=== PATIENT | female | born 1985 | race African-American/Black ===

== ENCOUNTER 2018-07-28 01:08 | Emergency (ER) | payer MEDICAID ==
[~2018-07-28] VITALS: Ht 170.2 cm; Wt 97.5 kg
[2018-07-28 01:12] VITALS: BP 164/87
[2018-07-28] MEDS ORDERED: cefTRIAXone SOD 1,000 MG VL IM ONE (05:00)
[2018-07-28] MEDS ORDERED: methylPREDNISolone SOD SUCC 125 MG/2 ML VL IM ONE (05:00)
[2018-07-28] MEDS ORDERED: PHENAZOPYRIDINE HCL 100 MG TAB PO ONE (05:00)
[2018-07-28] MEDS ORDERED: HYDROcodone-ACET 5/325MG TAB PO ONE (06:00)
== END 2018-07-28 06:02 | disposition home or self-care (01) ==
LOC: EDBD 01:08 → ER 01:11
DX: S33.5XXA Sprain of ligaments of lumbar spine, initial encounter (principal); N39.0 Urinary tract infection, site not specified; X58.XXXA Exposure to other specified factors, initial encounter; Y93.89 Activity, other specified; Y99.8 Other external cause status; Y92.89 Other specified places as the place of occurrence of the external cause
CPT/HCPCS: 72100; 96372; 99283; J0696; J2930

== ENCOUNTER 2020-08-29 11:27 | Inpatient (IN) | payer MEDICAID ==
[~2020-08-29] VITALS: Ht 167.6 cm; Wt 98.4 kg
[2020-08-29] MEDS ORDERED: BUTORPHANOL TARTRATE 2 MG/1 ML VIAL IV PRN ×2 (12:15)
[2020-08-29] MEDS ORDERED: LIDOCAINE 2%HCL (LOCAL ANESTH.) INJ 20ML MDV IJ PRN (12:15)
[2020-08-29] MEDS ORDERED: WITCH HAZEL-GLYCERIN PAD TOP PRN (12:15)
[2020-08-29] MEDS ORDERED: DERMOPLAST 60ML BOTTLE TOP PRN (12:15)
[2020-08-29] MEDS ORDERED: PHISODERM TOP SOLN 240ML BTL TOP PRN (12:15)
[2020-08-29] MEDS ORDERED: PROMETHAZINE HCL 25 MG/ML 1ML IM PRN (12:15)
[2020-08-29] MEDS ORDERED: PENICILLIN G POT 5MIL/D5 50ML 50 ML IV ONE (12:15)
[2020-08-29] MEDS: LACTATED RINGER'S 1,000 ML IV SCH ×2 (12:46→16:32)
[2020-08-29 13:10] LABS: Urine Bacteria FEW /hpf (None Seen); Urine Blood Negative /uL (Negative); Urine Mucus FEW (None Seen); Urine Specific Gravity 1.023 (1.001-1.035); Urine WBC 2 /hpf (0 - 5)
[2020-08-29 13:18] LABS: Amphetamine Screen, Urine NEGATIVE (NEGATIVE); Barbiturate Scree,Urine NEGATIVE (NEGATIVE); Benzodiazephine Screen, Urine NEGATIVE (NEGATIVE); Cannabinoid Screen, Urine NEGATIVE (NEGATIVE); Cocaine Screen, Urine NEGATIVE (NEGATIVE); Opiate Scree,Urine NEGATIVE (NEGATIVE); Phencyclidine Screen, Urine NEGATIVE (NEGATIVE)
[2020-08-29] MEDS ORDERED: PREN-96 PO (13:28)
[2020-08-29] MEDS ORDERED: miSOPROStol 100 mcg TAB PR PRN (13:30)
[2020-08-29] MEDS ORDERED: CARBOPROST TROMETHAMINE 250 MCG/1ML VIAL IM PRN (13:30)
[2020-08-29] MEDS ORDERED: METHYLERGONOVINE MALEATE 0.2 MG/ML AMP IM PRN (13:30)
[2020-08-29] MEDS ORDERED: miSOPROStol 100 mcg TAB SL PRN (13:30)
[2020-08-29] MEDS ORDERED: LACT. RINGERS/OXYTOCIN 20UNITS 1,000 ML IV ONE ×2 (13:31→14:30)
[2020-08-29] MEDS ORDERED: TERBUTALINE SULFATE 1 MG/ML 1ML VIAL SC PRN ×2 (14:30→15:00)
[2020-08-29] MEDS ORDERED: LACT. RINGERS/OXYTOCIN 20UNITS 1,000 ML IV SCH (14:30)
[2020-08-29 15:01] LABS: Hematocrit 33.5 % (36.0-46.0); Hemoglobin 11.4 g/dL (12.2-16.2); Mean Corpuscular Hemoglobin 30.6 pg (28.0-32.0); Mean Corpuscular Volume 89.8 fL (80.0-100.0); Platelet Count (auto) 189 10^3/uL (140-450); Red Blood Cells 3.73 10^6/uL (4.0-5.20); Red Cell Distribution Width 14.8 % (11.8-14.3); White Blood Cell 13.5 10^3/uL (4.4-10.8)
[2020-08-29 15:11] LABS: Basophils % (manual) 0 (0.0-2.0); Blast Cells 0; Metamyelocytes % 0; Promyelocytes % 0; Reactive Lymphocytes 0
[2020-08-29 15:28] LABS: INR 0.96 (0.9-1.15); Partial Thromboplastin Time 27.6 sec (23.0-31.2)
[2020-08-29 15:34] LABS: Albumin 2.4 g/dL (3.4-5.0); Calcium 8.1 mg/dL (8.5-10.1); Potassium 3.4 mmol/L (3.5-5.1)
[2020-08-29 15:36] LABS: BUN/Creatinine Ratio 12.5
[2020-08-29 15:39] LABS: Bilirubin, Total 0.4 mg/dL (0.2-1.0); Total Protein 6.8 g/dL (6.4-8.2)
[2020-08-29 15:51] LABS: Band Neutrophils % (manual) 6; Eosinophils % (manual) 3 (0-7); Lymphocytes % (manual) 13 (10.0-50.0); Monocytes % (manual) 4 (0-12); Myelocytes % 1
[2020-08-29] MEDS ORDERED: PENICILLIN G POTASSIUM 2,500,000 UNITS in D5W 5% 50 ML IV SCH (16:15)
[2020-08-29] MEDS ORDERED: miSOPROStol 100 mcg TAB ONE (16:53)
[2020-08-29] MEDS ORDERED: METHYLERGONOVINE MALEATE 0.2 MG/ML AMP IM ONE (16:54)
--- NOTE | 2020-08-29 19:05 | NUR ---
Ambulation: Patient OOB with standby assistance by RN. Patient ambulated to bathroom with steady gait. Patient able to void without difficulty, 350 ml. [facility]icare teaching provided with returned demonstration by patient. PT changed in to own clothes. Patient ambulated to room 7A while pushing open crib with steady gait and no distress noted.
--- NOTE | 2020-08-29 19:30 | NUR ---
PT EDUCATED ON AMBULATION TO PREVENT DVT/EMBOLUS. PT VERBALIZED UNDERSTANDING. Addendum: 08/30/20 at 0235 by SHEMAR CARLISLE RN RN Amended: Links added.
--- NOTE | 2020-08-29 19:30 | NUR ---
EDUCATION: PT EDUCATED ON SELF FUNDAL MASSAGE, HEMORRHAGE DUE BEING A GRAND MULTIP, AND SIDS/SAFE SLEEPING. PT WAS ENCOURAGED TO LAY BABY TO SLEEP IN [place]. PT VERBALIZED UNDERSTANDING
[2020-08-29] MEDS: ACETAMINOPHEN 325 MG TAB PO PRN (19:41)
[2020-08-29 23:15] VITALS: BP 125/67
[2020-08-30] MEDS: ACETAMINOPHEN 325 MG TAB PO PRN ×4 (00:28→18:51)
[2020-08-30] MEDS: IBUPROFEN 600 MG TAB PO PRN ×2 (01:22→08:07)
[2020-08-30 03:24] VITALS: BP 124/69
[2020-08-30 07:15] VITALS: BP 106/55
[2020-08-30 11:30] VITALS: BP 109/60
--- NOTE | 2020-08-30 12:28 | NUR ---
environmental services manager paged to call [facility] for ordered social service agency director consult.
[2020-08-30 15:30] VITALS: BP 110/66
--- NOTE | 2020-08-30 17:00 | NUR ---
Adriana from social services analyst calls the unit; this RN transfers the call to the patient room.
--- NOTE | 2020-08-30 17:05 | NUR ---
Adriana speaks to this RN and states that she is clearing patient for discharge this evening and will be entering a note into the chart.
[2020-08-30 18:59] VITALS: BP 116/63
--- NOTE | 2020-08-30 19:09 | NUR ---
IV removal IV DC'd with clean technique, catheter fully intact. Pressure dressing applied to site. Patient tolerated well. NOTE:
--- NOTE | 2020-08-30 19:24 | NUR ---
Discharge: Discharge instructions given as ordered. Pt encouraged to follow up with [facility] as instructed. All questions and concerns addressed. Patient verbalized understanding. Medication reconciliation completed and copy given to patient. All required/requested vaccines given and copies of vaccinations given to patient. Patient encouraged to prepare to depart unit.
--- NOTE | 2020-08-30 21:25 | NUR ---
Discharge: Patient taken to vehicle via steady ambulation with all personal belongings, accompanied by staff and family member. No distress noted at time of departure, no adverse changes in status since initial assessment. Car seat verified by this RN.
[2020-08-30 21:28] VITALS: BP 130/75
--- NOTE | 2020-08-31 17:10 | NUR ---
1700 08/30/20 - Spoke with patient regarding history of positive THC during . Patient and infant both tested negative at delivery. Patient had had an uncomplicated vaginal delivery. Patient denies use of any drugs. Patient states her spouse will be transporting her home, she lives with spouse and 5 children Patient states she feels safe in home environment. Patient stated all needs are met for her and the baby. All utilities are functioning appropriately in home. Patient denies any concerns at this time. Addendum: 08/31/20 at 1732 by Adriana Stuart RN Patient cleared for discharge by .
[2020-09-01 07:06] LABS: RPR Non Reactive (Non Reactive)
== END 2020-08-30 21:25 | disposition home or self-care (01) | DRG 560 ==
LOC: INTOOBSV 11:27 → LDRP 11:27 → OBSVTOIN 11:27 → UNDOADMOB 11:27 → LDRP 13:19
PROVIDERS: ADMIT Obstetrics & Gynecology; ATTEND Obstetrics & Gynecology
PROC: 10E0XZZ Delivery of Products of Conception, External Approach (ICD-10-PCS; principal; 2020-08-29)
PROC: 0HQ9XZZ Repair Perineum Skin, External Approach (ICD-10-PCS; 2020-08-29)
PROC: 3E033VJ Introduction of Other Hormone into Peripheral Vein, Percutaneous Approach (ICD-10-PCS; 2020-08-29)
DX: O70.0 First degree perineal laceration during delivery (principal); Z20.828 Contact with and (suspected) exposure to other viral communicable diseases; Z37.0 Single live birth; Z90.49 Acquired absence of other specified parts of digestive tract; Z3A.40 40 weeks gestation of pregnancy
CPT/HCPCS: 36415; 59025; 59409; 76805; 80053; 80307; 81001; 81002; 84112; 85007; 85027; 85610; 85730; 86592; 86850; 86900; 86901; 87081; 87426; 94760; 96360; 96361; 96365; 96366; 96374; G0378; J2540; J2590; J7060

== ENCOUNTER 2021-10-29 16:44 | Emergency (ER) | payer MEDICAID ==
[~2021-10-29] VITALS: Ht 170.2 cm; Wt 72.6 kg
[~2021-10-29 16:44] MED LIST: PREN-96 PO
[2021-10-29] MEDS ORDERED: ONDANSETRON HCL 4 MG/2 ML VIAL IV ONE ×2 (17:15→20:45)
[2021-10-29] MEDS ORDERED: SODIUM CHLORIDE 0.9% 1,000 ML IV ONE ×2 (17:15→19:30)
[2021-10-29] MEDS ORDERED: ACETAMINOPHEN 325 MG TAB PO ONE (18:15)
[2021-10-29 18:19] LABS: BUN/Creatinine Ratio 13.8; Calcium 9.8 mg/dL (8.5-10.1); Potassium 3.4 mmol/L (3.5-5.1)
[2021-10-29 18:31] LABS: Hematocrit 43.1 % (36.0-46.0); Hemoglobin 14.6 g/dL (12.2-16.2); Mean Corpuscular Hemoglobin 29.7 pg (28.0-32.0); Mean Corpuscular Hgb Conc. 33.8 g/dL (32.0-36.0); Mean Corpuscular Volume 87.8 fL (80.0-100.0); Red Blood Cells 4.91 10^6/uL (4.0-5.20); White Blood Cell 10.4 10^3/uL (4.4-10.8)
[2021-10-29 18:37] LABS: Band Neutrophils % (manual) 0; Basophils % (manual) 0 (0.0-2.0); Blast Cells 0; Metamyelocytes % 0; Myelocytes % 0; Promyelocytes % 0; Reactive Lymphocytes 0
[2021-10-29 18:55] LABS: Eosinophils % (manual) 2 (0-7); Lymphocytes % (manual) 14 (10.0-50.0); Monocytes % (manual) 5 (0-12)
[2021-10-29 20:26] VITALS: BP 117/78
== END 2021-10-29 21:04 | disposition home or self-care (01) ==
LOC: ER 16:44
DX: O21.0 Mild hyperemesis gravidarum (principal); Z3A.01 Less than 8 weeks gestation of pregnancy
CPT/HCPCS: 36415; 76801; 80048; 84702; 85007; 85027; 86900; 86901; 96361; 96374; 96376; 99284; J2405; J7030

== ENCOUNTER 2023-01-06 10:07 | Emergency (ER) | payer MEDICAID ==
[~2023-01-06] VITALS: Ht 170.2 cm; Wt 74.0 kg
[2023-01-06] MEDS ORDERED: METOCLOPRAMIDE HCL 5MG/ml INJ 2ml VIAL IV ONE (10:45)
[2023-01-06] MEDS ORDERED: SODIUM CHLORIDE 0.9% 1,000 ML IVB ONE (10:45)
[2023-01-06 11:00] LABS: Basophils # (auto) 0.1 10 ^3/uL (0-0.2); Basophils % (auto) 0.5 % (0.0-2.0); Eosinophils # (auto) 0.1 10 ^3/uL (0-0.8); Eosinophils % (auto) 0.6 % (0.0-7.0); Hematocrit 45.5 % (36.0-46.0); Lymphocytes # (auto) 2.6 10 ^3/uL (0.4-5.4); Lymphocytes % (auto) 19.4 % (10.0-50.0); Monocytes # (auto) 0.8 10 ^3/uL (0-1.3); Monocytes % (auto) 6.1 % (0.0-12.0); Neutrophils # (auto) 9.8 10 ^3/uL (1.6-8.6); Neutrophils % (auto) 73.4 % (37.0-80.0); Nucleated Red Blood Cells % 0.1 %; Red Blood Cells 5.13 10^6/uL (4.0-5.20); White Blood Cell 13.3 10^3/uL (4.4-10.8)
[2023-01-06 11:01] LABS: Mean Corpuscular Hemoglobin 29.2 pg (28.0-32.0); Mean Corpuscular Hgb Conc. 32.9 g/dL (32.0-36.0); Mean Corpuscular Volume 88.7 fL (80.0-100.0); Red Cell Distribution Width 13.5 % (11.8-14.3)
[2023-01-06 11:42] LABS: Urine Bacteria NONE SEEN /hpf (None Seen); Urine Blood Negative /uL (Negative); Urine Mucus FEW (None Seen); Urine Specific Gravity 1.029 (1.001-1.035); Urine WBC 68 /hpf (0 - 5)
[2023-01-06 11:44] LABS: Potassium 4.1 mmol/L (3.5-5.1)
[2023-01-06 11:49] LABS: Albumin 4.2 g/dL (3.4-5.0); BUN/Creatinine Ratio 16.7 (10.0-20.0); Bilirubin, Total 0.6 mg/dL (0.2-1.0); Calcium 9.6 mg/dL (8.5-10.1); Total Protein 8.4 g/dL (6.4-8.2)
[2023-01-06] MEDS ORDERED: METO-281 PO (13:18)
[2023-01-06] MEDS ORDERED: NITR-87 PO ×2 (13:18)
[2023-01-06] MEDS ORDERED: PRO25I PO ×2 (13:45)
[2023-01-06] MEDS ORDERED: PROMETHAZINE HCL 25 MG/ML 1ML IV ONE (13:45)
[2023-01-06 15:57] VITALS: BP 130/66
[2023-01-07] MEDS ORDERED: PRO25I PO (10:00)
[2023-01-07] MEDS ORDERED: NITR-87 PO (10:00)
== END 2023-01-06 15:58 | disposition home or self-care (01) ==
LOC: ER 10:07
DX: O21.0 Mild hyperemesis gravidarum (principal); O23.41 Unspecified infection of urinary tract in pregnancy, first trimester; O99.321 Drug use complicating pregnancy, first trimester; F12.10 Cannabis abuse, uncomplicated; Z90.49 Acquired absence of other specified parts of digestive tract; Z3A.01 Less than 8 weeks gestation of pregnancy
CPT/HCPCS: 36415; 76801; 80053; 81001; 82010; 84702; 85025; 96361; 96374; 99285; J2550; J7030

== ENCOUNTER 2024-12-12 13:40 | Observation (INO) | payer MEDICAID ==
[~2024-12-12 13:40] MED LIST changes: +METO-281 PO; +NITR-87 PO; +PRO25I PO
[2024-12-12] MEDS ORDERED: CEPH250C PO (15:12)
--- NOTE | 2024-12-13 08:20 | DVHDS2 ---
Physician Discharge Progress N Final Diagnosis: cramping 25wks Operations or Procedures: Operations or Procedures nst,sono Condition on Discharge: Good Disposition: Home Discharge Instructions: Diet: Regular Activity: No Restrictions, As Tolerated Medications: na Follow Up Care: Specialist: 2d Discharge Statement: "Patient was advised to return to the ER or call 911 if any headaches, dizziness, shortness of breath, chest pain, abdominal pain, bleeding, fevers, or worsening of medical condition. Patient was counseled about treatment plan, medications, possible side effects, patientverbalized understanding. All questions were answered to the best of my ability. This discharge took greater then 30 minutes in planning, reviewing documentation, counseling the patient, and discussing with other team members." Visit Coding OBGYN Date of Service: Dec 12, 2024 Billing Provider: JALYN FRANK DO REAL ESTATE VALUER Common Visit Codes: 49245-JGPHGXV OBS CARE (HIGH) REAL ESTATE VALUER Procedure Codes: 05436-19- NON-STRESS TEST JALYN FRANK DO Dec 13, 2024 08:20
== END 2024-12-12 15:46 | disposition home or self-care (01) ==
LOC: LDRP 13:40
PROVIDERS: ADMIT Obstetrics & Gynecology; ATTEND Obstetrics & Gynecology
DX: O62.9 Abnormality of forces of labor, unspecified (principal); Z3A.25 25 weeks gestation of pregnancy; Z79.899 Other long term (current) drug therapy
CPT/HCPCS: 81002; 94760; G0378

== ENCOUNTER 2025-01-19 14:20 | Observation (INO) | payer MEDICAID ==
[~2025-01-19 14:20] MED LIST changes: +CEPH250C PO
[2025-01-19 15:14] LABS: Basophils # (auto) 0.1 10 ^3/uL (0-0.2); Basophils % (auto) 0.4 % (0.0-2.0); Eosinophils # (auto) 0.2 10 ^3/uL (0-0.8); Eosinophils % (auto) 1.4 % (0.0-7.0); Hemoglobin 10.8 g/dL (12.2-16.2); Lymphocytes # (auto) 2.2 10 ^3/uL (0.4-5.4); Lymphocytes % (auto) 16.3 % (10.0-50.0); Mean Corpuscular Hemoglobin 27.2 pg (28.0-32.0); Mean Corpuscular Hgb Conc. 32.8 g/dL (32.0-36.0); Monocytes # (auto) 0.9 10 ^3/uL (0-1.3); Monocytes % (auto) 6.4 % (0.0-12.0); Neutrophils # (auto) 10.3 10 ^3/uL (1.6-8.6); Neutrophils % (auto) 75.5 % (37.0-80.0); Platelet Count (auto) 268 10^3/uL (140-450); Red Blood Cells 3.98 10^6/uL (4.0-5.20); Red Cell Distribution Width 14.8 % (11.8-14.3); White Blood Cell 13.7 10^3/uL (4.4-10.8)
[2025-01-19 15:20] LABS: Urine Bacteria FEW /hpf (None Seen); Urine Blood Negative /uL (Negative); Urine Color Yellow (Yellow); Urine Mucus FEW (None Seen); Urine Protein, UAD TRACE (Negative); Urine Specific Gravity 1.026 (1.001-1.035); Urine Squamous Epithelial Cell FEW /hpf (<5); Urine Urobilinogen 2 mg/dL (Negative); Urine WBC 33 /HPF (0-5)
[2025-01-19 15:23] LABS: Urine Clarity Hazy (Clear)
[2025-01-19 15:25] LABS: Protein, Urine 24.8 mg/dL (1-14)
[2025-01-19 15:28] LABS: Creatinine, Urine 167.92 mg/dL (30.0-125.0); Urine Protein/Creatinine Ratio 0.15
[2025-01-19 15:29] LABS: Band Neutrophils % (manual) 0; Basophils % (manual) 0 (0.0-2.0); Blast Cells 0; Metamyelocytes % 0; Promyelocytes % 0; Reactive Lymphocytes 0
[2025-01-19 15:31] LABS: Alanine Aminotransferase 10 U/L (7-40); Albumin 3.8 g/dL (3.2-4.8); Alkaline Phosphatase 99 U/L (46-116); Anion Gap 11 (5-15); BUN/Creatinine Ratio 10.2 (10.0-20.0); Calcium 8.8 mg/dL (8.7-10.4); Carbon Dioxide 21 mmol/L (20-31); Chloride 105 mmol/L (98-107); Sodium 137 mmol/L (136-145); Uric Acid 4.8 mg/dL (3.1-7.8)
[2025-01-19 15:32] LABS: INR 0.98 (0.9-1.15); Prothrombin Time 10.4 sec (9.3-11.8)
[2025-01-19 15:40] LABS: Blood Urea Nitrogen 5 mg/dL (9-23); Glucose 106 mg/dL (74-106); Potassium 3.4 mmol/L (3.5-5.1)
[2025-01-19 15:41] LABS: Aspartate Aminotransferase 10 U/L (13-40); Bilirubin, Total 0.2 mg/dL (0.2-1.0)
[2025-01-19 15:52] LABS: Eosinophils % (manual) 3 (0-7); Lymphocytes % (manual) 15 (10.0-50.0); Monocytes % (manual) 8 (0-12); Myelocytes % 2
[2025-01-19 15:53] LABS: Platelet Estimate Adequate
[2025-01-19] MEDS ORDERED: ASPI81CH59 PO (16:03)
--- NOTE | 2025-01-19 17:44 | DVHDS2 ---
Physician Discharge Progress N Final Diagnosis: IUP 31 wk, gestational HTN Operations or Procedures: Operations or Procedures NST Commentary: Commentary PIH labs negative Condition on Discharge: Stable Disposition: Home Discharge Instructions: Diet: Regular Activity: No Restrictions, As Tolerated Follow Up/Referral: F/U with Primary OB as scheduled Medications: N/A Follow Up Care: Discharge Statement: "Patient was advised to return to the ER or call 911 if any headaches, dizziness, shortness of breath, chest pain, abdominal pain, bleeding, fevers, or worsening of medical condition. Patient was counseled about treatment plan, medications, possible side effects, patientverbalized understanding. All questions were answered to the best of my ability. This discharge took greater then 30 minutes in planning, reviewing documentation, counseling the patient, and discussing with other team members." Visit Coding OBGYN Date of Service: January 19, 2025 Billing Provider: RIMMA SPEARS DO TEACHING MUSIC LESSONS Common Visit Codes: 44860-PFU/OBS SAME DATE (MOD) TEACHING MUSIC LESSONS Procedure Codes: 63999-47- NON-STRESS TEST RIMMA SPEARS DO January 19, 2025 17:44
== END 2025-01-19 16:26 | disposition home or self-care (01) ==
LOC: LDRP 14:20
PROVIDERS: ADMIT Obstetrics & Gynecology; ATTEND Obstetrics & Gynecology
DX: O13.3 Gestational [pregnancy-induced] hypertension without significant proteinuria, third trimester (principal); Z98.890 Other specified postprocedural states; Z79.899 Other long term (current) drug therapy; Z3A.31 31 weeks gestation of pregnancy
CPT/HCPCS: 36415; 59025; 80053; 81001; 81002; 82570; 84156; 84550; 85025; 85610; 85730; 94760; G0378

== ENCOUNTER → 2025-01-20 | Outpatient (CLI) | payer MEDICAID ==
[~2025-01-20] MED LIST changes: +ASPI81CH59 PO
[2025-01-20 10:24] LABS: Hematocrit 34.2 % (36.0-46.0); Hemoglobin 11.3 g/dL (12.2-16.2); Mean Corpuscular Hemoglobin 27.5 pg (28.0-32.0); Mean Corpuscular Volume 83.2 fL (80.0-100.0); Platelet Count (auto) 273 10^3/uL (140-450); Red Blood Cells 4.11 10^6/uL (4.0-5.20); Red Cell Distribution Width 14.9 % (11.8-14.3); White Blood Cell 14.1 10^3/uL (4.4-10.8)
[2025-01-20 10:31] LABS: Basophils % (manual) 0 (0.0-2.0); Blast Cells 0; Metamyelocytes % 0; Myelocytes % 0; Promyelocytes % 0; Reactive Lymphocytes 0
[2025-01-20 11:51] LABS: Band Neutrophils % (manual) 1; Eosinophils % (manual) 2 (0-7); Lymphocytes % (manual) 18 (10.0-50.0); Monocytes % (manual) 7 (0-12); Platelet Estimate Adequate
[2025-01-21 20:07] LABS: Chlamydia Trachomatis, NAA Negative (Negative); Neisseria gonorrhoeae, NAA Negative (Negative)
== END | disposition home or self-care (01) ==
LOC: LAB 09:47
DX: Z34.83 Encounter for supervision of other normal pregnancy, third trimester (principal); Z3A.31 31 weeks gestation of pregnancy
CPT/HCPCS: 36415; 82951; 83036; 85007; 85027; 86850; 86900; 86901

== ENCOUNTER 2025-01-28 14:17 | Observation (INO) | payer MEDICAID ==
--- NOTE | 2025-01-28 15:18 | DVH ---
Procedure: US BIOPHYSICAL PROFILE 01/28/2025 02:54 PM Indication: Decreased movement/AMA/HX PIH Comparison: None Technique: Sonogram of gravid uterus utilizing grayscale and color techniques. FINDINGS: Single living intrauterine gestation. Presentation: Cephalic Placenta: Posterior heart rate: 169 bpm CESAR: 13.6 cm, DVP: 4 cm Maternal cervix: Not visualized Biophysical Profile: breathing score: 2 movement score: 2 tone: 2 Quantitative CESAR score: 2 Total score: 8/8 IMPRESSION: 1. Single living as above. 2. Biophysical profile score: 8/8. 3. Borderline tachycardia.
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
== END 2025-01-28 16:16 | disposition home or self-care (01) ==
LOC: LDRP 14:17 → UNDOADMOB 14:17 → LDRP 14:32
PROVIDERS: ADMIT Obstetrics & Gynecology; ATTEND Obstetrics & Gynecology
DX: O36.8130 Decreased fetal movements, third trimester, not applicable or unspecified (principal); O26.893 Other specified pregnancy related conditions, third trimester; R51.9 Headache, unspecified; O09.523 Supervision of elderly multigravida, third trimester; O99.323 Drug use complicating pregnancy, third trimester; F12.90 Cannabis use, unspecified, uncomplicated; Z3A.32 32 weeks gestation of pregnancy
CPT/HCPCS: 59025; 76819; 81002; 94760; G0378

== ENCOUNTER 2025-02-13 15:00 | Observation (INO) | payer MEDICAID ==
--- NOTE | 2025-02-13 15:42 | DVHDS2 ---
Physician Discharge Progress N Final Diagnosis: pih 34 wks Operations or Procedures: Operations or Procedures nst reactive reviwed,sono,labs Condition on Discharge: Good Disposition: Home Discharge Instructions: Diet: Regular Activity: No Restrictions, As Tolerated Medications: na Follow Up Care: Specialist: jodee Discharge Statement: "Patient was advised to return to the ER or call 911 if any headaches, dizziness, shortness of breath, chest pain, abdominal pain, bleeding, fevers, or worsening of medical condition. Patient was counseled about treatment plan, medications, possible side effects, patientverbalized understanding. All questions were answered to the best of my ability. This discharge took greater then 30 minutes in planning, reviewing d ocumentation, counseling the patient, and discussing with other team members." Visit Coding OBGYN Date of Service: Feb 13, 2025 Billing Provider: JALYN FRANK DO CONCRETE BLOCK PLANT SUPERVISOR Common Visit Codes: 49447-GNRTCSR OBS CARE (HIGH) CONCRETE BLOCK PLANT SUPERVISOR Procedure Codes: 31631-74- NON-STRESS TEST JALYN FRANK DO Feb 13, 2025 15:42
[2025-02-13 15:55] LABS: Hematocrit 34.9 % (36.0-46.0); Hemoglobin 11.5 g/dL (12.2-16.2); Mean Corpuscular Hemoglobin 26.8 pg (28.0-32.0)
[2025-02-13 15:56] LABS: Mean Corpuscular Volume 81.4 fL (80.0-100.0); Platelet Count (auto) 267 10^3/uL (140-450); Red Blood Cells 4.29 10^6/uL (4.0-5.20); Red Cell Distribution Width 15.8 % (11.8-14.3); White Blood Cell 14.8 10^3/uL (4.4-10.8)
[2025-02-13 15:58] LABS: Urine Bacteria None Seen /hpf (None Seen)
--- NOTE | 2025-02-13 15:58 | DVH ---
EXAM: US Biophysical Profile Without Non-Stress Testing CLINICAL INDICATION: PIH AMA TECHNIQUE: Real-time ultrasound of the maternal pelvis for biophysical profile evaluation with image documentation. COMPARISON: US BIOPHYSICAL PROFILE on DOS: 01/28/25 FINDINGS: BREATHING MOVEMENTS: Present. Score 2/2. GROSS BODY MOVEMENTS: Present. Score 2/2. TONE: Present. Score 2/2. QUALITATIVE AMNIOTIC FLUID VOLUME: CESAR 12.9 cm. HEART RATE: Heart rate 142 beats per minute. PRESENTATION: Cephalic presentation. PLACENTA: Placenta posterior. OTHER FINDINGS: . IMPRESSION: No acute findings. Normal biophysical profile with score of 8/8.
[2025-02-13 16:08] LABS: Urine Blood Negative /uL (Negative); Urine Budding Yeast OCCASIONAL /hpf (None Seen); Urine Clarity Turbid (Clear); Urine Color Yellow (Yellow); Urine Mucus FEW (None Seen); Urine Protein, UAD TRACE (Negative); Urine Specific Gravity 1.023 (1.001-1.035); Urine Squamous Epithelial Cell MOD /hpf (<5); Urine Urobilinogen Normal (Negative); Urine WBC 32 /HPF (0-5); Urine pH 6.5 (5.0-9.0)
[2025-02-13 16:10] LABS: Basophils % (manual) 0 (0.0-2.0); Blast Cells 0; Myelocytes % 0; Promyelocytes % 0; Reactive Lymphocytes 0
[2025-02-13 16:11] LABS: Alanine Aminotransferase 12 U/L (7-40); Albumin 4.1 g/dL (3.2-4.8); Anion Gap 13 (5-15); Aspartate Aminotransferase 15 U/L (0-34); BUN/Creatinine Ratio 11.9 (10.0-20.0); Bilirubin, Total 0.4 mg/dL (0.2-1.0); Calcium 9.1 mg/dL (8.7-10.4); Carbon Dioxide 20 mmol/L (20-31); Chloride 103 mmol/L (98-107); Glucose 96 mg/dL (74-106); Potassium 3.6 mmol/L (3.5-5.1); Total Protein 7.4 g/dL (5.7-8.2); Uric Acid 4.8 mg/dL (3.1-7.8)
[2025-02-13 16:12] LABS: Alkaline Phosphatase 123 U/L (46-116); Blood Urea Nitrogen 5 mg/dL (9-23); Sodium 136 mmol/L (136-145)
[2025-02-13 16:13] LABS: Protein, Urine 28.2 mg/dL (1-14)
[2025-02-13 16:16] LABS: Creatinine, Urine 150.69 mg/dL (30.0-125.0); Urine Protein/Creatinine Ratio 0.19
[2025-02-13 16:32] LABS: INR 0.99 (0.9-1.15); Partial Thromboplastin Time 28.3 SEC (24.5-34.5); Prothrombin Time 10.5 sec (9.3-11.8)
[2025-02-13 17:00] LABS: Band Neutrophils % (manual) 3; Eosinophils % (manual) 1 (0-7); Lymphocytes % (manual) 12 (10.0-50.0); Metamyelocytes % 1; Monocytes % (manual) 9 (0-12); Platelet Estimate Adequate
== END 2025-02-13 16:46 | disposition home or self-care (01) ==
LOC: LDRP 15:00 → UNDOADMOB 15:00 → LDRP 15:02
PROVIDERS: ADMIT Obstetrics & Gynecology; ATTEND Obstetrics & Gynecology
DX: O13.3 Gestational [pregnancy-induced] hypertension without significant proteinuria, third trimester (principal); Z3A.34 34 weeks gestation of pregnancy; Z79.899 Other long term (current) drug therapy; Z98.890 Other specified postprocedural states
CPT/HCPCS: 36415; 59025; 76819; 80053; 81001; 81002; 82570; 84156; 84550; 85007; 85027; 85610; 85730; 94760; G0378

== ENCOUNTER 2025-02-20 14:25 | Outpatient (CLI) | payer MEDICAID ==
[2025-02-20 14:54] LABS: Basophils # (auto) 0 10 ^3/uL (0-0.2); Basophils % (auto) 0.1 % (0.0-2.0); Eosinophils # (auto) 0.1 10 ^3/uL (0-0.8); Hematocrit 32.9 % (36.0-46.0); Hemoglobin 10.9 g/dL (12.2-16.2); Lymphocytes # (auto) 2.1 10 ^3/uL (0.4-5.4); Lymphocytes % (auto) 15.4 % (10.0-50.0); Mean Corpuscular Hgb Conc. 33.1 g/dL (32.0-36.0); Mean Corpuscular Volume 81.6 fL (80.0-100.0); Monocytes # (auto) 0.8 10 ^3/uL (0-1.3); Monocytes % (auto) 5.7 % (0.0-12.0); Neutrophils # (auto) 10.4 10 ^3/uL (1.6-8.6); Neutrophils % (auto) 77.8 % (37.0-80.0); Nucleated Red Blood Cells % 0.1 %; Platelet Count (auto) 248 10^3/uL (140-450); Red Blood Cells 4.03 10^6/uL (4.0-5.20); Red Cell Distribution Width 16.8 % (11.8-14.3); White Blood Cell 13.3 10^3/uL (4.4-10.8)
[2025-02-20 15:12] LABS: Alanine Aminotransferase 13 U/L (7-40); Albumin 3.9 g/dL (3.2-4.8); Alkaline Phosphatase 117 U/L (46-116); Anion Gap 11 (5-15); Aspartate Aminotransferase 14 U/L (<34); Bilirubin, Total 0.4 mg/dL (0.2-1.0); Blood Urea Nitrogen 5 mg/dL (9-23); Calcium 9.6 mg/dL (8.7-10.4); Carbon Dioxide 23 mmol/L (20-31); Chloride 105 mmol/L (98-107); Glucose 98 mg/dL (74-106); Potassium 3.4 mmol/L (3.5-5.1); Sodium 139 mmol/L (136-145); Total Protein 7.1 g/dL (5.7-8.2)
== END 2025-02-20 17:00 | disposition home or self-care (01) ==
LOC: LAB 14:25
DX: Z34.80 Encounter for supervision of other normal pregnancy, unspecified trimester (principal); Z3A.01 Less than 8 weeks gestation of pregnancy
CPT/HCPCS: 36415; 80053; 85025; 86780

== ENCOUNTER 2025-02-20 15:15 | Observation (INO) | payer MEDICAID ==
--- NOTE | 2025-02-20 16:46 | DVH ---
EXAM: US BIOPHYSICAL PROFILE HISTORY: NST/BPP history of preeclampsia COMPARISON: US BIOPHYSICAL PROFILE on DOS: 02/13/25, US BIOPHYSICAL PROFILE on DOS: 01/28/25 TECHNIQUE: Multiple transabdominal real-time grayscale sonographic images through the gravid uterus of the fetus with duplex Doppler color flow and M-mode spectral analysis Findings/Impression: Single live intrauterine in vertex presentation with heart rate of 160 bpm. Biophysical profile was performed with 2 points for respirations, 2 points for movement, 2 points for tone and 2 points for amniotic fluid index. Biophysical profile score of 8/8. Amniotic fluid is within normal limits with CESAR 10.6 cm and MVP 4.5 cm. Normal CESAR (5-25 cm) Normal MVP (2-8 cm)
--- NOTE | 2025-02-21 14:28 | DVHDS2 ---
Physician Discharge Progress N Final Diagnosis: 35wks ama Operations or Procedures: Operations or Procedures nst reactive reviwed,sono Condition on Discharge: Good Disposition: Home Discharge Instructions: Diet: Regular Activity: No Restrictions, As Tolerated Medications: na Follow Up Care: Specialist: 1w Discharge Statement: "Patient was advised to return to the ER or call 911 if any headaches, dizziness, shortness of breath, chest pain, abdominal pain, bleeding, fevers, or worsening of medical condition. Patient was counseled about treatment plan, medications, possible side effects, patientverbalized understanding. All questions were answered to the best of my ability. This discharge took greater then 30 minutes in planning, reviewing documentat ion, counseling the patient, and discussing with other team members." Visit Coding OBGYN Date of Service: Feb 20, 2025 Billing Provider: JALYN FRANK DO PARTS LISTER Common Visit Codes: 79230-SKJXRHZ OBS CARE (HIGH) PARTS LISTER Procedure Codes: 12154-25- NON-STRESS TEST JALYN FRANK DO Feb 21, 2025 14:28
== END 2025-02-20 17:00 | disposition home or self-care (01) ==
LOC: LDRP 15:15 → UNDOADMOB 15:15 → LDRP 15:26
PROVIDERS: ADMIT Obstetrics & Gynecology; ATTEND Obstetrics & Gynecology
DX: O62.9 Abnormality of forces of labor, unspecified (principal); O09.523 Supervision of elderly multigravida, third trimester; Z3A.35 35 weeks gestation of pregnancy; Z79.899 Other long term (current) drug therapy
CPT/HCPCS: 59025; 76819; 81002; 94760; G0378

== ENCOUNTER 2025-02-27 14:52 | Observation (INO) | payer MEDICAID ==
--- NOTE | 2025-02-27 17:20 | DVH ---
EXAM: US BIOPHYSICAL PROFILE HISTORY: history Pre-Eclampsia COMPARISON: US BIOPHYSICAL PROFILE on DOS: 02/20/25, US BIOPHYSICAL PROFILE on DOS: 02/13/25, US BIOPHY SICAL PROFILE on DOS: 01/28/25 TECHNIQUE: Multiple transabdominal real-time grayscale sonographic images through the gravid uterus of the fetus with duplex Doppler color flow and M-mode spectral analysis Findings/Impression: Single live intrauterine in vertex presentation with heart rate of 132 bpm. Biophysical profile was performed with 2 points for respirations, 2 points for movement, 2 points for tone and 2 points for amniotic fluid index. Biophysical profile score of 8/8. Amniotic fluid is within normal limits with CESAR 12.6 cm and MVP 3.9 cm. Normal CESAR (5-25 cm) Normal MVP (2-8 cm)
--- NOTE | 2025-02-28 13:45 | DVHDS2 ---
Physician Discharge Progress N Final Diagnosis: pih 36wks Operations or Procedures: Operations or Procedures nst reactive reviwed,sono Condition on Discharge: Good Disposition: Home Discharge Instructions: Diet: Regular Activity: No Restrictions, As Tolerated Medications: na Follow Up Care: Specialist: 4d Discharge Statement: "Patient was advised to return to the ER or call 911 if any headaches, dizziness, shortness of breath, chest pain, abdominal pain, bleeding, fevers, or worsening of medical condition. Patient was counseled about treatment plan, medications, possible side effects, patientverbalized understanding. All questions were answered to the best of my ability. This discharge took greater then 30 minutes in planning, reviewing documentat ion, counseling the patient, and discussing with other team members." Visit Coding OBGYN Date of Service: Feb 27, 2025 Billing Provider: JALYN FRANK DO LIBRARY TECHNOLOGY INSTRUCTOR Common Visit Codes: 06920-GIXEZKR OBS CARE (HIGH) LIBRARY TECHNOLOGY INSTRUCTOR Procedure Codes: 97739-82- NON-STRESS TEST JALYN FRANK DO Feb 28, 2025 13:44
== END 2025-02-27 17:16 | disposition home or self-care (01) ==
LOC: LDRP 14:52
PROVIDERS: ADMIT Obstetrics & Gynecology; ATTEND Obstetrics & Gynecology
DX: O13.3 Gestational [pregnancy-induced] hypertension without significant proteinuria, third trimester (principal); Z3A.36 36 weeks gestation of pregnancy; Z79.899 Other long term (current) drug therapy
CPT/HCPCS: 59025; 76819; 81002; 94760; G0378

== ENCOUNTER 2025-03-06 09:53 | Observation (INO) | payer MEDICAID ==
--- NOTE | 2025-03-12 13:55 | DVH ---
CLINICAL HISTORY: Advanced maternal age. COMPARISON: US BIOPHYSICAL PROFILE on DOS: 02/27/25, US BIOPHYSICAL PROFILE on DOS: 02/20/25, US BIOPHY SICAL PROFILE on DOS: 02/13/25 TECHNIQUE: biophysical profile was performed. Transabdominal sonographic images of the fetus we re obtained. FINDINGS: The fetus is in cephalic position. heart rate measures 126 BPM. Amniotic fluid index measures 13.8 cm. The placenta is posterior/fundal in position without evidence of previa or abruptio n. BPP profile is an overall score of 8/8, with 2/2 points for breathing, with at least one episode of breathing over a 30 second duration during a 30 minute observation, 2/2 points for m ovements, with 3 or more discrete body or limb movements, 2/2 points for tone, with one or more episodes of extremity extension with return to flexion, or opening and closing of hand, and 2/ 2 points for amniotic fluid, with at least 1 pocket of amniotic fluid that measures 2 cm in 2 perpend icular planes. IMPRESSION: BPP score of 8/8.
--- NOTE | 2025-03-15 07:20 | DVHDS2 ---
Physician Discharge Progress N Final Diagnosis: ama 38wks Operations or Procedures: Operations or Procedures nst reactive reviwewbarbra aviles Condition on Discharge: Good Disposition: Home Discharge Instructions: Diet: Regular Activity: No Restrictions, As Tolerated Medications: na Follow Up Care: Specialist: 1w Discharge Statement: "Patient was advised to return to the ER or call 911 if any headaches, dizziness, shortness of breath, chest pain, abdominal pain, bleeding, fevers, or worsening of medical condition. Patient was counseled about treatment plan, medications, possible side effects, patientverbalized understanding. All questions were answered to the best of my ability. This discharge took greater then 30 minutes in planning, reviewing documenta tion, counseling the patient, and discussing with other team members." Visit Coding OBGYN Date of Service: Mar 12, 2025 Billing Provider: JALYN FRANK DO LEDGE MAN Common Visit Codes: 95442-OXUZJHX OBS CARE (HIGH) LEDGE MAN Procedure Codes: 82096-77- NON-STRESS TEST JALYN FRANK DO Mar 15, 2025 07:20
== END 2025-03-12 12:31 | disposition home or self-care (01) ==
LOC: LDRP 03-12 11:05
PROVIDERS: ADMIT Obstetrics & Gynecology; ATTEND Obstetrics & Gynecology
DX: O09.523 Supervision of elderly multigravida, third trimester (principal); O62.9 Abnormality of forces of labor, unspecified; Z3A.38 38 weeks gestation of pregnancy; Z79.899 Other long term (current) drug therapy; Z98.890 Other specified postprocedural states
CPT/HCPCS: 59025; 76819; 81002; G0378

== ENCOUNTER 2025-03-17 21:46 | Inpatient (IN) | payer MEDICAID ==
[~2025-03-17] VITALS: Ht 170.2 cm; Wt 100.2 kg
[2025-03-18] VITALS (15 sets, daily range): BP systolic 86–123; BP diastolic 43–74; PULSE 59–111; RESP 12–18; TEMP 94.5–97.9; O2SAT 93–100
[2025-03-18] MEDS ORDERED: WITCH HAZEL-GLYCERIN PAD TOP PRN (00:30)
[2025-03-18] MEDS: LACT. RINGERS/OXYTOCIN 20UNITS 500 ML IV ONE ×2 (00:30→01:00)
[2025-03-18] MEDS ORDERED: LIDOCAINE 2%HCL (LOCAL ANESTH.) INJ 20ML MDV IJ PRN (00:30)
[2025-03-18] MEDS: PENICILLIN G POT 5MIL/D5 50ML 50 ML IV ONE (00:30)
[2025-03-18] MEDS ORDERED: PHISODERM TOP SOLN 240ML BTL TOP PRN (00:30)
[2025-03-18] MEDS ORDERED: DIPHENOXYLATE W/ATROPINE 2.5 MG TAB PO PRN (00:30)
[2025-03-18] MEDS ORDERED: METHYLERGONOVINE MALEATE 0.2 MG/ML AMP IM PRN (00:30)
[2025-03-18] MEDS ORDERED: CARBOPROST TROMETHAMINE 250 MCG/1ML VIAL IM PRN (00:30)
[2025-03-18] MEDS ORDERED: DERMOPLAST 60ML BOTTLE TOP PRN (00:30)
[2025-03-18] MEDS ORDERED: NALBUPHINE HCL 10 MG/1ml INJECTION IV PRN (00:30)
[2025-03-18 00:57] LABS: Hemoglobin 11.2 g/dL (12.2-16.2); Nucleated Red Blood Cells % 0.0 %
[2025-03-18 00:58] LABS: Hematocrit 34.3 % (36.0-46.0); Mean Corpuscular Hemoglobin 26.9 pg (28.0-32.0); Mean Corpuscular Volume 82.1 fL (80.0-100.0)
[2025-03-18 01:12] LABS: Alanine Aminotransferase 16 U/L (7-40); Albumin 4.2 g/dL (3.2-4.8); Anion Gap 8 (5-15); BUN/Creatinine Ratio 13.6 (10.0-20.0); Bilirubin, Total 0.4 mg/dL (0.2-1.0); Blood Urea Nitrogen 9 mg/dL (9-23); Calcium 9.1 mg/dL (8.7-10.4); Carbon Dioxide 23 mmol/L (20-31); Chloride 103 mmol/L (98-107); Total Protein 7.3 g/dL (5.7-8.2); Uric Acid 4.4 mg/dL (3.1-7.8)
[2025-03-18 01:13] LABS: INR 0.99 (0.9-1.15); Partial Thromboplastin Time 27.7 SEC (24.5-34.5); Prothrombin Time 10.5 sec (9.3-11.8)
[2025-03-18 01:32] LABS: Urine Protein, UAD TRACE (Negative)
[2025-03-18 01:37] LABS: Alkaline Phosphatase 147 U/L (46-116); Glucose 108 mg/dL (74-106); Potassium 3.4 mmol/L (3.5-5.1); Sodium 134 mmol/L (136-145)
[2025-03-18 01:37] LABS: Amphetamine Screen, Urine Neg (NEGATIVE); Barbiturate Scree,Urine Neg (NEGATIVE); Benzodiazephine Screen, Urine Neg (NEGATIVE); Cannabinoid Screen, Urine Neg (NEGATIVE); Cocaine Screen, Urine Neg (NEGATIVE); Opiate Scree,Urine Neg (NEGATIVE); Phencyclidine Screen, Urine Neg (NEGATIVE)
[2025-03-18] MEDS: LACTATED RINGER'S 1,000 ML IV SCH (03:03)
--- NOTE | 2025-03-18 03:59 | DVH ---
EXAM: US OB ULTRASOUND COMP GTR 14 WKS HISTORY: IOL TECHNIQUE: Multiple real-time grayscale images of the gravid uterus with duplex Doppler color flow an d M-mode spectral analysis. COMPARISON: OB ULTRASOUND COMP GTR 14 WKS on DOS: 08/29/20 FINDINGS: IUP single live fetus at 38 weeks 1 day average ultrasound age (AUA) based on composite averages of t he BPD, head circumference, abdominal circumference and femur length Age based on (early ultrasound) : 38 weeks 1 day MEASUREMENTS: BPD: 9.6 cm GA: 39 w 1 d HC: 34.3 cm GA: 39 w 4 d AC: 33.5 cm GA: 37 w 3 d FL: 7.1 cm GA: 36 w 2 d Estimated weight 3251+/-488 grams; 7 lbs 3 oz, 38th percentile. heart rate 150 beats per minute CESAR 9.03 cm ANATOMIC SURVEY: Complete anatomic survey was not performed at this time. movement identified. Transverse head left Presentation Fundal grade III placenta without previa or abruption IMPRESSION: 1. IUP single live fetus at 38 weeks 1 day AUA corresponding to an DARWIN of 03/31/2025. 2. No abnormality detected.
[2025-03-18] MEDS: PENICILLIN G POTASSIUM 2,500,000 UNITS in D5W 5% 50 ML IV SCH (04:30)
--- NOTE | 2025-03-18 05:59 | DVHHP2 ---
OB CC & HPI Patient Identification: : 12 Para: 7 EDC: Mar 23, 2025 EGA: 39+ Chief Complaints: Reason for admission: induction of labor (AMA ) Other reason for admission: Induction " Transverse position". Past Medical History Cardiac: No pertinent Hx Pulmonary: No pertinent Hx Central Nervous System: No pertinent Hx GI: No pertinent Hx Hemotology/Oncology: No pertinent Hx Hepatobiliary: No pertinent Hx Psychiatric: No pertinent Hx Musculoskeletal: No pertinent Hx Rheumotologic: No pertinent Hx Infectious Disease: No peritnent Hx ENT: No pertinent Hx Renal/: No pertinent Hx Endocrine: No pertinent Hx Dermatology: No pertinent Hx Past Surgical History: Other (UTI never started her ABX) OB History OB History Care: Good Care Ultrasounds: Normal mid trimester US Obstetrical Complications: Other (Grand Multip) Allergies: Coded Allergies: NO KNOWN ALLERGIES (Unverified , 03/18/25) Home Meds Active Scripts Promethazine Hcl (PHENERGAN INJECTION) 25 Mg/Ml Ij, 12.5 MG PO Q8HP PRN for 5 Days, #15 POW Prov:CARMINE SHEPPARD MD 01/07/23 Nitrofurantoin Monohydrate Mac (Macrobid) 100 Mg Cap, 100 MG PO BID for 7 Days, #14 CAP Prov:CARMINE SHEPPARD MD 01/07/23 Metoclopramide Hcl (Reglan) 10 Mg Tab, 10 MG PO Q12HP PRN for 7 Days, #14 TAB Prov:KOJO FLANNERY MD 01/06/23 Reported Medications Aspirin (Aspirin Low Dose) 81 Mg Chw, 1 TAB PO DAILY, #90 TAB 3 Refills 01/19/25 Cephalexin (KEFLEX CAPSULE) 250 Mg Cp, 1 CAP PO QID, #28 CAP 12/12/24 Vit W/ Ferrous Fumara ( One Daily) Daily Tab, 1 TAB PO DAILY, #90 TAB 3 Refills 08/29/20 Current Medications Current Medications Medications (Trade) Dose Ordered Sig/Yony Route PRN Reason Start Time Stop Time Status Last Admin Lactated Ringer's 1,000 ml @ 125 mls/hr Q8H IV 03/18/25 00:30 03/18/25 03:05 Nalbuphine HCl (Nubain) 10 mg Q4HP PRN IV MODERATE PAIN (4-6 PAIN SCALE) 7/15/25 00:30 Penicillin G Potassium [id number] units/Dextrose 50 ml @ 100 mls/hr Q4H IV 03/18/25 04:30 Witch Keren (Tucks) 1 pad PRN PRN TOP PERINEAL AREA DISCOMFORT 03/18/25 00:30 Sodium Lauryl Sulfate (Phisoderm) 240 ml PRN PRN TOP PERINEAL AREA DISCOMFORT 03/18/25 00:30 Benzocaine (Dermoplast) 1 applic PRN PRN TOP PERINEAL AREA DISCOMFORT 03/18/25 00:30 Misoprostol (Cytotec) 50 mcg Q4HPRN PRN PO CERVICAL RIPENING 03/18/25 00:30 Lidocaine HCl (Xylocaine) 20 ml ONCE PRN IJ PERINEAL AREA DISCOMFORT 03/18/25 00:30 Ondansetron HCl (Zofran) 4 mg Q4HP PRN IV NAUSEA / VOMITING 03/18/25 00:30 Carboprost Tromethamine (Hemabate) 250 mcg Q20M PRN IM POST HEMORRHAGE 03/18/25 00:30 03/18/25 01:11 DC Methylergonovine Maleate (Methergine) 0.2 mg Q8HP PRN IM POST HEMORRHAGE 03/18/25 00:30 03/20/25 00:29 Diphenoxylate HCl/ Atropine (Lomotil Tablet) 10 mg Q12HR PRN PO DIZZINESS 03/18/25 00:30 Family & Social History Family/Social History Blood Type: B+ Rubella: immune RPR/VDRL: Negative GBS Status: Positive HBsAG: Negative Review of Systems Constitutional: No symptom reported Ears, Nose, & Throat: No symptom reported Eyes: No symptom reported Pulmonary/Respiratory: No symptom reported Cardiovascular: No symptom reported Gastrointestinal: No symptom reported Genitourinary: No symptom reported Musculoskeletal: No symptom reported Skin: No symptom reported Psychiatric: No symptom reported Endocrine: No symptom reported Hemotologic/Lymphatic: No symptom reported OB Admission Exam Physical Exam HEENT: TMs Normal, Fontanelles Normal, Nasal Mucosa Normal, Eyes non-injected, Oropharynx Normal, PERRLA, Moist Membranes, EOMI Heart: Rhythm Normal Lungs: Clear Abdomen: Non tender Extremities: Normal Reflexes: Normal Cervical Dilatation: 1cm Effacement: 75% Station: -3 Membranes: Intact Heart Rate: 130's Accelerations: Accelerations Present Decelerations: No Decelerations Short Term Variability: Present Usp Variability: Average (6-25) Contractions on Admission: None OB Plan Plan Admitting Diagnosis: INDUC OF LABOR cancelled; AMA; Grand Multip; Group B positive; UTI Just informed she has tranverse positon. Patient considering her options Plan: Section Other Plan: On Ancef 2nd UTI / Group B Visit Coding OBGYN Date of Service: Mar 18, 2025 Billing Provider: STEPHEN PARISI DO HOME CARE ASSISTANT Common Visit Codes: 18267-ZYX/OBS SAME DATE (LOW), 18886-SZB/OBS SAME DATE (MOD), 28597-VOD/OBS SAME DATE (HIGH) HOME CARE ASSISTANT Procedure Codes: 89191-CMEBZ OB CARE, STEPHEN MEJIA DO Mar 18, 2025 05:59
[2025-03-18] MEDS: ceFAZolin 2 GM/D5W50ml 50 ML IV ONE ×2 (07:45→14:33)
[2025-03-18] MEDS: LACTATED RINGER'S 1,000 ML IV ONE (07:45)
[2025-03-18] MEDS: BUPIVACAINE 0.5% P/F INJ 10 ML VIAL ONE (10:53)
[2025-03-18] MEDS ORDERED: MORPHINE SULF PF 5 MG/10 ML VIAL ONE (10:56)
--- NOTE | 2025-03-18 11:23 | DVHHP ---
ADMIT DATE: 03/18/2025 CHIEF COMPLAINT: Transverse presentation. HISTORY OF PRESENT ILLNESS: The patient is a 39-year-old 10, para 7 with a due date of 03/23, estimated gestational age of 39+ weeks admitted for induction of labor, but the patient was noted to have a transverse presentation. Risks, complications, options, cephalic version choice discussed with the patient. The patient is having early labor signs. She wishes to proceed with primary . She does not want any tubal ligation. PAST MEDICAL HISTORY: None. PAST SURGICAL HISTORY: None. SOCIAL HISTORY: None. FAMILY HISTORY: None. OBSTETRIC AND GYNECOLOGIC HISTORY: 7 vaginal deliveries. REVIEW OF SYSTEMS: Consistent with HPI. PHYSICAL EXAMINATION: VITAL SIGNS: Stable, afebrile. HEENT: Within normal limits. CARDIOVASCULAR: Regular rate and rhythm. LUNGS: Clear to auscultation. BREASTS: Symmetrical, no masses. ABDOMEN: Soft, nontender, gravid. PELVIC: 1 cm. EXTREMITIES: No clubbing, cyanosis, or edema. IMPRESSION: * Intrauterine at 39+ weeks with transverse presentation, abnormal lie. * AMA. * Morbid obesity. PLAN: Primary . Informed consent obtained. Risks and complications of surgery including infection; bleeding; hematoma formation; injury to bowel, bladder, surrounding organ; possibility of pulmonary embolism and risks of anesthesia were discussed. Options were reviewed. All questions answered. The patient fully understands. She wishes to proceed with planned procedure. DO ZENON Bernabe/MARQUITA TID: [id number] RECEIPT: [id number]
[2025-03-18] MEDS ORDERED: ONDANSETRON HCL 4 MG/2 ML VIAL ONE (12:13)
[2025-03-18] MEDS ORDERED: NALBUPHINE HCL 10 MG/1ml INJECTION SUBCUT ONE (13:30)
[2025-03-18] MEDS ORDERED: diphenhdrAMINE HCL 50 MG/1 ML VL IV PRN (13:30)
[2025-03-18] MEDS ORDERED: ONDANSETRON HCL 4 MG/2 ML VIAL IV PRN (13:30)
[2025-03-18] MEDS ORDERED: ONDANSETRON HCL 4 MG/2 ML VIAL IV ONE (13:30)
[2025-03-18] MEDS ORDERED: HYDROmorphone HCL 2 MG/ML VL/or syr IV PRN (13:30)
[2025-03-18] MEDS ORDERED: NALOXONE HCL 0.4 MG/ML VIAL IV PRN (13:30)
[2025-03-18] MEDS: HYDROmorphone HCL 2 MG/ML VL/or syr IV PRN (13:43)
[2025-03-18] MEDS: ACETAMINOPHEN IV 1000 MG/100ML (10MG/ML) IV PRN (13:55)
[2025-03-18] MEDS ORDERED: ceFAZolin 1GM/50ML 50 ML IV SCH ×2 (14:00→15:15)
[2025-03-18] MEDS: HYDROmorphone HCL 2 MG/ML VL/or syr ONE (14:09)
--- NOTE | 2025-03-18 14:56 | DVHOP2 ---
Operative Report DATE OF OPERATION: 03/18/25 PREOPERATIVE DIAGNOSES: Term with transverse lie ,,ama,morbid obesity POSTOPERATIVE DIAGNOSES: same SURGEON: Gia Maldonado D.O./curt ANESTHESIOLOGIST: zulma TYPE OF ANESTHESIA : spinal CONSENT: The patient was informed of the risks and benefits of the procedure. The patient was informed of the risks and benefits of the procedure. These include but are not limited to , complications of anesthesia, postoperative infection, incomplete relief of symptoms, recurrence of symptoms, damage to blood vessels, nerves and tendons, deep venous thrombosis, pulmonary embolism and possible need for repeat surgery in the future. FINDINGS: Baby [b] with Apgars of [9] and [9]. Grossly normal appearing tubes and ovaries.breech PROCEDURES: Primary low transverse section. PROCEDURE IN DETAIL: The patient was taken to the operating room. She already had an epidural in place. She was then placed in supine position with a leftward tilt. A Pfannenstiel skin incision was made 2 cm above the symphysis pubis. This incision was carried to the underlying layer of fascia. The fascia was nicked in the midline. The incision was extended laterally. The superior aspect of the fascial incision was grasped and elevated. The same procedure was done to the inferior aspect of the fascial incision. The rectus muscles were then in the midline. Peritoneum was identified and entered. Peritoneal incision was extended superiorly and inferiorly with good visualization of the bladder. Bladder blade was inserted. Vesicouterine peritoneum was identified and entered. Lower uterine segment was incised in a transverse fashion. The infant was delivered from transverse presentation. Infant was baby b with Apgars [9] and [9]. Placenta was then removed manually. Uterus was exteriorized and cleared of all clots and debris. The incision was repaired using 0 Vicryl in a double-layered fashion. No bleeding was noted. Uterus was then returned to the abdomen. The gutters were cleared off all clots and debris. Peritoneum was closed using 0 Vicryl, fascia was closed using 0 Maxon, and skin was closed using donato. The patient tolerated the procedure well. She was taken to the recovery room in stable condition. ESTIMATED BLOOD LOSS: Estimated blood loss was noted to be 800 mL. Visit Coding OBGYN Date of Service: Mar 18, 2025 Billing Provider: GIA MALDONADO DO AUTOMOTIVE TIRE TECHNICIAN Common Visit Codes: [id number] OBS CARE (HIGH) AUTOMOTIVE TIRE TECHNICIAN Procedure Codes: [id number] DELIVERY ONLY GIA MALDONADO DO Mar 18, 2025 14:55
--- NOTE | 2025-03-18 14:59 | POSTOP ---
Post-Operative Note Post-Operative Note Preop Diagnosis term preg with transverse lie,ama,morbid obesity Postop Diagnosis: same Operation performed pltcs Specimen baby boy,apgars 9-9,breech Anesthesia: Regional Anesthesiologist: nuygen Blood Loss(fluid mgmt) 800ml Surgeon Jalyn Maldonado Locker Plant Attendant curt Implant na Complications & Mgmt none Date 03/18/25 Time 14:57 Visit Coding OBGYN Date of Service: Mar 18, 2025 Billing Provider: JALYN MALDONADO DO GASOLINE PUMP MECHANIC Common Visit Codes: [id number] OBS CARE (HIGH) GASOLINE PUMP MECHANIC Procedure Codes: [id number] DELIVERY ONLY JALYN MALDONADO DO Mar 18, 2025 14:59
[2025-03-18] MEDS: LACT. RINGERS/OXYTOCIN 20UNITS 1,000 ML IV ONE (15:15)
[2025-03-18] MEDS: ONDANSETRON HCL 4 MG/2 ML VIAL IV PRN ×2 (15:47→20:17)
[2025-03-18 19:07] LABS: Hematocrit 37.3 % (36.0-46.0); Hemoglobin 11.9 g/dL (12.2-16.2); Mean Corpuscular Hemoglobin 26.4 pg (28.0-32.0); Mean Corpuscular Volume 82.7 fL (80.0-100.0); Nucleated Red Blood Cells % 0.0 %
[2025-03-18] MEDS: DEXTROSE (50%) 50ML SYRG IV ONE (19:18)
[2025-03-18 19:22] LABS: Alanine Aminotransferase 16 U/L (7-40); Albumin 3.9 g/dL (3.2-4.8); Anion Gap 11 (5-15); Calcium 9.1 mg/dL (8.7-10.4); Carbon Dioxide 22 mmol/L (20-31); Glucose 77 mg/dL (74-106); Potassium 3.6 mmol/L (3.5-5.1); Sodium 140 mmol/L (136-145); Total Protein 7.0 g/dL (5.7-8.2); Uric Acid 4.6 mg/dL (3.1-7.8)
[2025-03-18 19:23] LABS: Bilirubin, Total 0.6 mg/dL (0.2-1.0)
--- NOTE | 2025-03-18 19:24 | DVHPN2 ---
Progress Note Date Seen: Mar 18, 2025 Subjective Pt reports feeling weak. Pt reports having a UTI last week that she never picked up the antibiotics for. vital signs Vital Sign Date Time Temp Pulse Resp B/P (MAP) Pulse Ox O2 Delivery O2 Flow Rate FiO2 03/18/25 18:00 66 16 109/43 (65) 95 03/18/25 15:00 97.5 97.5 03/18/25 14:20 Nasal Cannula 2.0 100 medications Current Medications Medications Dose Ordered Sig/Yony Route Start Time Stop Time Status Last Admin Dose Admin Lactated Ringer's 1,000 ml @ 125 mls/hr Q8H IV 03/18/25 00:30 03/18/25 03:05 125 MLS/HR Nalbuphine HCl 10 mg Q4HP PRN IV 03/18/25 00:30 Penicillin G Potassium 3344019 units/Dextrose 50 ml @ 100 mls/hr Q4H IV 03/18/25 04:30 Witch Keren 1 pad PRN PRN TOP 03/18/25 00:30 Sodium Lauryl Sulfate 240 ml PRN PRN TOP 03/18/25 00:30 Benzocaine 1 applic PRN PRN TOP 03/18/25 00:30 Misoprostol 50 mcg Q4HPRN PRN PO 03/18/25 00:30 Lidocaine HCl 20 ml ONCE PRN IJ 03/18/25 00:30 Ondansetron HCl 4 mg Q4HP PRN IV 03/18/25 00:30 03/18/25 15:47 4 MG Methylergonovine Maleate 0.2 mg Q8HP PRN IM 03/18/25 00:30 03/20/25 00:29 Diphenoxylate HCl/ Atropine 10 mg Q12HR PRN PO 03/18/25 00:30 Cefazolin Sodium 50 ml @ 100 mls/hr Q8HR IV 03/18/25 14:00 Cancel Diphenhydramine HCl 25 mg Q4HP PRN IV 03/18/25 13:30 Ondansetron HCl 4 mg Q4HP PRN IV 03/18/25 13:30 Ketorolac Tromethamine 30 mg Q6HP PRN IV 03/18/25 13:30 03/23/25 13:29 Ondansetron HCl 4 mg Q4HP PRN IV 03/18/25 15:15 Cefazolin Sodium 50 ml @ 100 mls/hr Q8H IV 03/18/25 19:30 03/19/25 11:59 Ceftriaxone Sodium 50 ml @ 100 mls/hr DAILY@09 IV 03/19/25 09:00 UNV laboratory and microbiology Laboratory Tests 03/18/25 18:41 Test 03/18/25 18:41 Range/Units Serum Glucose Pending Objective Pt already getting Ancef IV q8hrs post-op Initially, Dr. Pavon from anesthesia assessed pt when temp was 96F and low urine output. He ordered bear hugger and IV fluid bolus. Later, DECISION SUPPORT MANAGER called due to rectal temp of 94.5F BG - 88 CARGO WORKER gave 1/2 Amp of Dextrose Fundus 1-U, firm, midline, light lochia Total QBL 975 ml Problems(with codes): (1) S/P primary low transverse (2) Hypothermia following anesthesia (3) UTI (urinary tract infection) Assessment/Plan A: 39yo now POD#0 s/p primary for transverse lie Hypothermia UTI P: Dr. Maldonado consulted, who spoke with Dr. Naranjo. Medicine hospitalist consult ordered. Rocephin 1g IVPB q12hrs ordered. CMP/CBC/uric acid/urine PC ratio/lactic acid labs ordered. Plan discussed with: Patient, Spouse Visit Coding OBGYN Date of Service: Mar 18, 2025 Billing Provider: MICHELLE GRIFFITHS CNM TEACHER COUNSELOR Common Visit Codes: [id number] INP/OBS CARE(HIGH) MICHELLE GRIFFITHS CNM Mar 18, 2025 19:24
[2025-03-18] MEDS: ceFAZolin 1GM/50ML 50 ML IV SCH (19:32)
[2025-03-18 19:36] LABS: Alkaline Phosphatase 156 U/L (46-116); BUN/Creatinine Ratio 13.9 (10.0-20.0); Blood Urea Nitrogen < 5 mg/dL (9-23); Chloride 107 mmol/L (98-107)
[2025-03-18 19:46] LABS: Urine Budding Yeast OCCASIONAL /hpf (None Seen); Urine Protein, UAD Negative (Negative)
[2025-03-18 19:54] LABS: Lactic Acid w/Reflex 2.2 mmol/L (0.4-2.0)
[2025-03-18 19:55] LABS: Protein, Urine 28.5 mg/dL (1-14)
[2025-03-18] MEDS: cefTRIAXone 1GM/50ML D5W 50 ML IV SCH (21:34)
[2025-03-18] MEDS: KETOROLAC TROMETH 30 MG/ML 1ML VIAL IV PRN (21:35)
[2025-03-19] VITALS (17 sets, daily range): BP systolic 98–136; BP diastolic 53–72; PULSE 70–97; RESP 16–18; TEMP 97.8–98.7; O2SAT 93–99
--- NOTE | 2025-03-19 00:44 | DVHPN2 ---
Progress Note Date Seen: Mar 19, 2025 Subjective S: Pt has dizziness when sitting up too high but otherwise feels better than before. She wants more pain medications, tolerating clear liquids, vick catheter still in place. no flatus/BM yet. Her partner is feeding baby formula for now, pt has not felt strong enough to hold the baby yet. vital signs Vital Sign Date Time Temp Pulse Resp B/P (MAP) Pulse Ox O2 Delivery O2 Flow Rate FiO2 03/18/25 21:00 97.2 81 16 116/74 (88) 94 97.2 03/18/25 14:20 Nasal Cannula 2.0 100 medications Current Medications Medications Dose Ordered Sig/Yony Route Start Time Stop Time Status Last Admin Dose Admin Lactated Ringer's 1,000 ml @ 125 mls/hr Q8H IV 03/18/25 00:30 03/18/25 03:05 125 MLS/HR Nalbuphine HCl 10 mg Q4HP PRN IV 03/18/25 00:30 Witch Keren 1 pad PRN PRN TOP 03/18/25 00:30 Sodium Lauryl Sulfate 240 ml PRN PRN TOP 03/18/25 00:30 Benzocaine 1 applic PRN PRN TOP 03/18/25 00:30 Misoprostol 50 mcg Q4HPRN PRN PO 03/18/25 00:30 Lidocaine HCl 20 ml ONCE PRN IJ 03/18/25 00:30 Methylergonovine Maleate 0.2 mg Q8HP PRN IM 03/18/25 00:30 03/20/25 00:29 Diphenoxylate HCl/ Atropine 10 mg Q12HR PRN PO 03/18/25 00:30 Cefazolin Sodium 50 ml @ 100 mls/hr Q8HR IV 03/18/25 14:00 Cancel Diphenhydramine HCl 25 mg Q4HP PRN IV 03/18/25 13:30 Ondansetron HCl 4 mg Q4HP PRN IV 03/18/25 13:30 Cancel Ketorolac Tromethamine 30 mg Q6HP PRN IV 03/18/25 13:30 03/23/25 13:29 03/18/25 21:35 30 MG Ondansetron HCl 4 mg Q4HP PRN IV 03/18/25 15:15 03/18/25 20:17 4 MG Cefazolin Sodium 50 ml @ 100 mls/hr Q8H IV 03/18/25 19:30 03/19/25 11:59 03/18/25 19:32 100 MLS/HR Ceftriaxone Sodium 50 ml @ 100 mls/hr DAILY@2200 IV 03/18/25 22:00 03/18/25 21:34 100 MLS/HR laboratory and microbiology Laboratory Tests 03/18/25 18:41 Test 03/18/25 18:41 Range/Units Serum Glucose 77 74-106 mg/dL Laboratory Tests Test 03/18/25 00:20 03/18/25 00:34 03/18/25 16:36 03/18/25 18:26 Range/Units Urine Color Yellow Yellow Urine Clarity Turbid H Clear Urine pH 6.5 5.0-9.0 Urine Specific [place] 1.024 1.001-1.035 Urine Protein Trace H Negative Urine Ketones Trace Negative Urine Blood Negative Negative /uL Urine Nitrite Negative Negative Urine Bilirubin Negative Negative Urine Urobilinogen 2 H Negative mg/dL Urine Leukocyte Esterase 3+ Negative /uL Urine RBC 14 0 - 4 /hpf Urine Microscopic WBC 48 H 0-5 /HPF Urine Squamous Epithelial Cells Few <5 /hpf Urine Bacteria Few H None Seen /hpf Urine Mucus Few None Seen Urine Glucose Normal Normal mg/dL Urine Opiates Screen Neg NEGATIVE Urine Fentanyl Screen Neg NEGATIVE Urine Barbiturates Screen Neg NEGATIVE Urine Phencyclidine Screen Neg NEGATIVE Urine Amphetamines Screen Neg NEGATIVE Urine Benzodiazepines Screen Neg NEGATIVE Urine Cocaine Screen Neg NEGATIVE Urine Cannabinoids Screen Neg NEGATIVE White Blood Count 14.1 H 4.4-10.8 10^3/uL Red Blood Count 4.18 4.0-5.20 10^6/uL Hemoglobin 11.2 L 12.2-16.2 g/dL Hematocrit 34.3 L 36.0-46.0 % Mean Corpuscular Volume 82.1 80.0-100.0 fL Mean Corpuscular Hemoglobin 26.9 L 28.0-32.0 pg Mean Corpuscular Hemoglobin Concent 32.8 32.0-36.0 g/dL Red Cell Distribution Width 17.1 H 11.8-14.3 % Platelet Count 264 140-450 10^3/uL Mean Platelet Volume 8.5 6.9-10.8 fL Neutrophils (%) (Auto) 76.1 37.0-80.0 % Lymphocytes (%) (Auto) 17.3 10.0-50.0 % Monocytes (%) (Auto) 5.4 0.0-12.0 % Eosinophils (%) (Auto) 1.0 0.0-7.0 % Basophils (%) (Auto) 0.2 0.0-2.0 % Neutrophils # (Auto) 10.8 H 1.6-8.6 10 ^3/uL Lymphocytes # (Auto) 2.4 0.4-5.4 10 ^3/uL Monocytes # (Auto) 0.8 0-1.3 10 ^3/uL Eosinophils # (Auto) 0.1 0-0.8 10 ^3/uL Basophils # (Auto) 0 0-0.2 10 ^3/uL Nucleated Red Blood Cells 0.0 % Prothrombin Time 10.5 9.3-11.8 sec Prothrombin Time INR 0.99 0.9-1.15 Activated Partial Thromboplast Time 27.7 24.5-34.5 SEC Sodium Level 134 L 136-145 mmol/L Potassium Level 3.4 L 3.5-5.1 mmol/L Chloride Level 103 98-107 mmol/L Carbon Dioxide Level 23 20-31 mmol/L Anion Gap 8 5-15 Blood Urea Nitrogen 9 9-23 mg/dL Creatinine 0.66 0.550-1.02 mg/dL Glomerular Filtration Rate Calc 116 >90 mL/min BUN/Creatinine Ratio 13.6 10.0-20.0 Serum Glucose 108 H 74-106 mg/dL Uric Acid 4.4 3.1-7.8 mg/dL Calcium Level 9.1 8.7-10.4 mg/dL Total Bilirubin 0.4 0.2-1.0 mg/dL Aspartate Amino Transferase (AST) 21 13-40 U/L Alanine Aminotransferase (ALT) 16 7-40 U/L Alkaline Phosphatase 147 H 46-116 U/L Total Protein 7.3 5.7-8.2 g/dL Albumin 4.2 3.2-4.8 g/dL Treponema pallidum Antibody Non-reactive Negative Hepatitis C Antibody Negative Negative HIV (1&2) Antibody Negative Negative POC Glucose 88 75 70-106 mg/dl Test 03/18/25 18:41 03/18/25 19:09 03/18/25 19:18 03/18/25 19:53 Range/Units White Blood Count 17.3 H 4.4-10.8 10^3/uL Red Blood Count 4.51 4.0-5.20 10^6/uL Hemoglobin 11.9 L 12.2-16.2 g/dL Hematocrit 37.3 36.0-46.0 % Mean Corpuscular Volume 82.7 80.0-100.0 fL Mean Corpuscular Hemoglobin 26.4 L 28.0-32.0 pg Mean Corpuscular Hemoglobin Concent 31.9 L 32.0-36.0 g/dL Red Cell Distribution Width 17.3 H 11.8-14.3 % Platelet Count 243 140-450 10^3/uL Mean Platelet Volume 8.9 6.9-10.8 fL Neutrophils (%) (Auto) 85.2 H 37.0-80.0 % Lymphocytes (%) (Auto) 9.8 L 10.0-50.0 % Monocytes (%) (Auto) 4.5 0.0-12.0 % Eosinophils (%) (Auto) 0.2 0.0-7.0 % Basophils (%) (Auto) 0.3 0.0-2.0 % Neutrophils # (Auto) 14.8 H 1.6-8.6 10 ^3/uL Lymphocytes # (Auto) 1.7 0.4-5.4 10 ^3/uL Monocytes # (Auto) 0.8 0-1.3 10 ^3/uL Eosinophils # (Auto) 0 0-0.8 10 ^3/uL Basophils # (Auto) 0.1 0-0.2 10 ^3/uL Nucleated Red Blood Cells 0.0 % Sodium Level 140 # 136-145 mmol/L Potassium Level 3.6 3.5-5.1 mmol/L Chloride Level 107 98-107 mmol/L Carbon Dioxide Level 22 20-31 mmol/L Anion Gap 11 5-15 Blood Urea Nitrogen < 5 L 9-23 mg/dL Creatinine 0.36 #L 0.550-1.02 mg/dL Glomerular Filtration Rate Calc 134 >90 mL/min BUN/Creatinine Ratio 13.9 10.0-20.0 Serum Glucose 77 74-106 mg/dL Uric Acid 4.6 3.1-7.8 mg/dL Calcium Level 9.1 8.7-10.4 mg/dL Total Bilirubin 0.6 0.2-1.0 mg/dL Aspartate Amino Transferase (AST) 35 13-40 U/L Alanine Aminotransferase (ALT) 16 7-40 U/L Alkaline Phosphatase 156 H 46-116 U/L Total Protein 7.0 5.7-8.2 g/dL Albumin 3.9 3.2-4.8 g/dL Urine Color Yellow Yellow Urine Clarity Clear Clear Urine pH 6.5 5.0-9.0 Urine Specific [place] 1.027 1.001-1.035 Urine Protein Negative Negative Urine Ketones 3+ H Negative Urine Blood 2+ H Negative /uL Urine Nitrite Negative Negative Urine Bilirubin Negative Negative Urine Urobilinogen Normal Negative mg/dL Urine Leukocyte Esterase Negative Negative /uL Urine RBC 103 0 - 4 /hpf Urine Microscopic WBC 11 H 0-5 /HPF Urine Squamous Epithelial Cells Few <5 /hpf Urine Bacteria None seen None Seen /hpf Urine Mucus Few None Seen Urine Yeast (Budding) Occasional None Seen /hpf Urine Creatinine 83.21 30.0-125.0 mg/dL Urine Protein/Creatinine Ratio 0.34 Urine Glucose 2+ H Normal mg/dL Urine Total Protein 28.5 H 1-14 mg/dL Lactic Acid Level 2.2 *H 0.4-2.0 mmol/L POC Glucose 112 H 70-106 mg/dl Test 03/18/25 21:23 Range/Units Lactic Acid Level 1.1 0.4-2.0 mmol/L Thyroid Stimulating Hormone (TSH) 1.69 0.55-4.78 uIU/mL Vital Signs Date Time Temp Pulse Resp B/P (MAP) Pulse Ox O2 Delivery O2 Flow Rate FiO2 03/18/25 21:00 97.2 81 16 116/74 (88) 94 97.2 03/18/25 14:20 Nasal Cannula 2.0 100 Objective O: VSS Chest: heart sounds normal and lung sounds clear bilaterally Abd: soft, non-tender, fundus 2-U/firm/midline, active bowel sounds, no rebound or guarding Incision: sylke dressing open to air, clean/dry/intact Perineum: sutures intact, edges well approximated, no erythema/edema noted Ext: Non-tender, No edema, 2+ BLE DTRs Lochia: minimal See lab results Medicine hospitalist consult completed by RODRIGO Dillon Problems(with codes): (1) S/P primary low transverse Assessment/Plan A: 39yo now POD#1 s/p primary P: ofirmev ordered for pain advance diet as tolerated continue routine PP care Plan discussed with: Patient, Spouse Visit Coding OBGYN Date of Service: Mar 19, 2025 Billing Provider: MICHELLE GRIFFITHS CNM DIVER TENDER Common Visit Codes: [id number] INP/OBS CARE(HIGH) MICHELLE GRIFFITHS CNM Mar 19, 2025 00:44
[2025-03-19] MEDS: ACETAMINOPHEN IV 1000 MG/100ML (10MG/ML) IV PRN (01:11)
[2025-03-19 04:22] LABS: Hematocrit 31.0 % (36.0-46.0); Hemoglobin 9.9 g/dL (12.2-16.2); Mean Corpuscular Hemoglobin 26.6 pg (28.0-32.0); Mean Corpuscular Volume 83.3 fL (80.0-100.0); Nucleated Red Blood Cells % 0.0 %
[2025-03-19] MEDS ORDERED: HYDROcodone-ACET 5/325MG TAB PO PRN (13:30)
[2025-03-19] MEDS: HYDROcodone-ACET 5/325MG TAB PO PRN (13:57)
[2025-03-19] MEDS ORDERED: DOCU-94 PO (14:53)
[2025-03-19] MEDS ORDERED: IBUP-1456 PO ×2 (14:53→23:59)
[2025-03-19] MEDS ORDERED: HYDR-4072 PO (14:53)
[2025-03-19] MEDS: ceFAZolin 1GM/50ML 50 ML IV ONE (15:52)
[2025-03-19] MEDS: HYDROmorphone HCL 2 MG/ML VL/or syr IV ONE (17:30)
[2025-03-19] MEDS: SIMETHICONE 80 MG CHEWABLE TABLET PO SCH (18:00)
[2025-03-19] MEDS: DOCUSATE SOD 100 MG CAP PO SCH (22:20)
[2025-03-19] MEDS ORDERED: FER325T PO (23:59)
[2025-03-19] MEDS ORDERED: PREN-96 PO (23:59)
--- NOTE | 2025-03-20 00:03 | DVHPN2 ---
Progress Note Date Seen: Mar 20, 2025 Subjective S: bleeding is less, eating food without issues, denies lightheaded/dizziness, pain is controlled with oral medications, no concerns with urinating, passing flatus, no BM yet, ambulating well, formula feeding vital signs Vital Sign Date Time Temp Pulse Resp B/P (MAP) Pulse Ox O2 Delivery O2 Flow Rate FiO2 03/19/25 18:30 Room Air 03/19/25 18:30 98.7 96 18 132/69 (90) 99 98.7 03/18/25 14:20 2.0 100 Total Intake and Output 03/19/25 03/19/25 03/20/25 15:00 23:00 07:00 Output Total 500 ml 1150 ml Balance -500 ml -1150 ml medications Current Medications Medications Dose Ordered Sig/Yony Route Start Time Stop Time Status Last Admin Dose Admin Lactated Ringer's 1,000 ml @ 125 mls/hr Q8H IV 03/18/25 00:30 03/18/25 03:05 125 MLS/HR Kelly Veliz 1 pad PRN PRN TOP 03/18/25 00:30 Sodium Lauryl Sulfate 240 ml PRN PRN TOP 03/18/25 00:30 Benzocaine 1 applic PRN PRN TOP 03/18/25 00:30 Lidocaine HCl 20 ml ONCE PRN IJ 03/18/25 00:30 Diphenoxylate HCl/ Atropine 10 mg Q12HR PRN PO 03/18/25 00:30 Cefazolin Sodium 50 ml @ 100 mls/hr Q8HR IV 03/18/25 14:00 Cancel Ondansetron HCl 4 mg Q4HP PRN IV 03/18/25 13:30 Cancel Ceftriaxone Sodium 50 ml @ 100 mls/hr DAILY@2200 IV 03/18/25 22:00 03/19/25 22:52 100 MLS/HR Docusate Sodium 100 mg Q12HR PO 03/19/25 22:00 03/19/25 22:20 100 MG Dimethicone 80 mg QID PO 03/19/25 18:00 03/19/25 22:20 80 MG Ibuprofen 800 mg Q8HP PRN PO 03/19/25 13:30 Acetaminophen/ Hydrocodone Bitart 1 tab Q4HPRN PRN PO 03/19/25 13:30 Acetaminophen/ Hydrocodone Bitart 2 tab Q4HPRN PRN PO 03/19/25 13:30 03/19/25 23:59 2 TAB laboratory and microbiology Laboratory Tests 03/19/25 03:56 03/18/25 18:41 Test 03/18/25 18:41 Range/Units Serum Glucose 77 74-106 mg/dL Laboratory Tests Test 03/18/25 16:36 03/18/25 18:26 03/18/25 18:41 03/18/25 19:09 Range/Units POC Glucose 88 75 70-106 mg/dl White Blood Count 17.3 H 4.4-10.8 10^3/uL Red Blood Count 4.51 4.0-5.20 10^6/uL Hemoglobin 11.9 L 12.2-16.2 g/dL Hematocrit 37.3 36.0-46.0 % Mean Corpuscular Volume 82.7 80.0-100.0 fL Mean Corpuscular Hemoglobin 26.4 L 28.0-32.0 pg Mean Corpuscular Hemoglobin Concent 31.9 L 32.0-36.0 g/dL Red Cell Distribution Width 17.3 H 11.8-14.3 % Platelet Count 243 140-450 10^3/uL Mean Platelet Volume 8.9 6.9-10.8 fL Neutrophils (%) (Auto) 85.2 H 37.0-80.0 % Lymphocytes (%) (Auto) 9.8 L 10.0-50.0 % Monocytes (%) (Auto) 4.5 0.0-12.0 % Eosinophils (%) (Auto) 0.2 0.0-7.0 % Basophils (%) (Auto) 0.3 0.0-2.0 % Neutrophils # (Auto) 14.8 H 1.6-8.6 10 ^3/uL Lymphocytes # (Auto) 1.7 0.4-5.4 10 ^3/uL Monocytes # (Auto) 0.8 0-1.3 10 ^3/uL Eosinophils # (Auto) 0 0-0.8 10 ^3/uL Basophils # (Auto) 0.1 0-0.2 10 ^3/uL Nucleated Red Blood Cells 0.0 % Sodium Level 140 # 136-145 mmol/L Potassium Level 3.6 3.5-5.1 mmol/L Chloride Level 107 98-107 mmol/L Carbon Dioxide Level 22 20-31 mmol/L Anion Gap 11 5-15 Blood Urea Nitrogen < 5 L 9-23 mg/dL Creatinine 0.36 #L 0.550-1.02 mg/dL Glomerular Filtration Rate Calc 134 >90 mL/min BUN/Creatinine Ratio 13.9 10.0-20.0 Serum Glucose 77 74-106 mg/dL Uric Acid 4.6 3.1-7.8 mg/dL Calcium Level 9.1 8.7-10.4 mg/dL Total Bilirubin 0.6 0.2-1.0 mg/dL Aspartate Amino Transferase (AST) 35 13-40 U/L Alanine Aminotransferase (ALT) 16 7-40 U/L Alkaline Phosphatase 156 H 46-116 U/L Total Protein 7.0 5.7-8.2 g/dL Albumin 3.9 3.2-4.8 g/dL Urine Color Yellow Yellow Urine Clarity Clear Clear Urine pH 6.5 5.0-9.0 Urine Specific [place] 1.027 1.001-1.035 Urine Protein Negative Negative Urine Ketones 3+ H Negative Urine Blood 2+ H Negative /uL Urine Nitrite Negative Negative Urine Bilirubin Negative Negative Urine Urobilinogen Normal Negative mg/dL Urine Leukocyte Esterase Negative Negative /uL Urine RBC 103 0 - 4 /hpf Urine Microscopic WBC 11 H 0-5 /HPF Urine Squamous Epithelial Cells Few <5 /hpf Urine Bacteria None seen None Seen /hpf Urine Mucus Few None Seen Urine Yeast (Budding) Occasional None Seen /hpf Urine Creatinine 83.21 30.0-125.0 mg/dL Urine Protein/Creatinine Ratio 0.34 Urine Glucose 2+ H Normal mg/dL Urine Total Protein 28.5 H 1-14 mg/dL Test 03/18/25 19:18 03/18/25 19:53 03/18/25 21:23 03/19/25 03:56 Range/Units Lactic Acid Level 2.2 *H 1.1 0.4-2.0 mmol/L POC Glucose 112 H 70-106 mg/dl Thyroid Stimulating Hormone (TSH) 1.69 0.55-4.78 uIU/mL White Blood Count 15.0 H 4.4-10.8 10^3/uL Red Blood Count 3.72 L 4.0-5.20 10^6/uL Hemoglobin 9.9 #L 12.2-16.2 g/dL Hematocrit 31.0 #L 36.0-46.0 % Mean Corpuscular Volume 83.3 80.0-100.0 fL Mean Corpuscular Hemoglobin 26.6 L 28.0-32.0 pg Mean Corpuscular Hemoglobin Concent 32.0 32.0-36.0 g/dL Red Cell Distribution Width 17.4 H 11.8-14.3 % Platelet Count 245 140-450 10^3/uL Mean Platelet Volume 8.6 6.9-10.8 fL Neutrophils (%) (Auto) 83.6 H 37.0-80.0 % Lymphocytes (%) (Auto) 11.1 10.0-50.0 % Monocytes (%) (Auto) 4.5 0.0-12.0 % Eosinophils (%) (Auto) 0.6 0.0-7.0 % Basophils (%) (Auto) 0.2 0.0-2.0 % Neutrophils # (Auto) 12.5 H 1.6-8.6 10 ^3/uL Lymphocytes # (Auto) 1.7 0.4-5.4 10 ^3/uL Monocytes # (Auto) 0.7 0-1.3 10 ^3/uL Eosinophils # (Auto) 0.1 0-0.8 10 ^3/uL Basophils # (Auto) 0 0-0.2 10 ^3/uL Nucleated Red Blood Cells 0.0 % Vital Signs Date Time Temp Pulse Resp B/P (MAP) Pulse Ox O2 Delivery O2 Flow Rate FiO2 03/20/25 07:20 98.3 76 15 104/59 (74) 95 98.3 03/20/25 07:15 Room Air 03/18/25 14:20 2.0 100 Objective O: VSS, normal temperature Normal urine output Chest: heart sounds normal and lung sounds clear bilaterally Abd: soft, non-tender, fundus at U/firm/midline, active bowel sounds, no rebound or guarding Incision: sylke dressing open to air, clean/dry/intact, old drainage noted Ext: Non-tender, No edema, 2+ BLE DTRs Lochia: minimal See lab results Problems(with codes): (1) S/P primary low transverse (2) Precipitous drop in hematocrit Assessment/Plan A: 39yo now PPD#1 s/p primary Anemia Rh+ Formula feeding P: D/C home today Rx sent to pharmacy precautions and preeclampsia warning signs reviewed F/U with [facility] office in 1 week Plan discussed with: Patient, Spouse Visit Coding OBGYN Date of Service: Mar 20, 2025 Billing Provider: MICHELLE GRIFFITHS CNM CARPET JACK Common Visit Codes: [id number] INP/OBS CARE(HIGH) MICHELLE GRIFFITHS CNM Mar 20, 2025 00:03
--- NOTE | 2025-03-20 00:05 | DVHDS2 ---
Obstetrics Discharge Summary Obstetrics Discharge Summary Date of Admission: Mar 18, 2025 Date of Discharge: Mar 20, 2025 Reason For Admission: Induction of Labor (AMA) Procedures: NST, Ultrasound, Mgmt of Obstetrics Compli (transverse lie on admission) Intrapartum Procedures: (primary LTCS) Procedures: Antibiotics, Hct/date: (03/19/25), Hgb/date: (03/19/25) Operative Complicat: None Discharge Diagnosis: Term -Delivered Discharge Information: Activity (as tolerated, no heavy lifting and nothing in the vagina for 6 weeks), Diet (Routine), Medications (Rx sent), Instructions (Routine), Discharge to (Home), Accompanied by (partner), Discarge date (03/20/25) Visit Coding OBGYN Date of Service: Mar 20, 2025 Billing Provider: MICHELLE GRIFFITHS CNM FURNACE CHECKER Common Visit Codes: [id number] DISCH DAY <30MIN MICHLELE GRIFFITHS CNM Mar 20, 2025 00:05
[2025-03-20] MEDS: IBUPROFEN 800 MG TAB PO PRN (01:42)
[2025-03-20 03:02] VITALS: BP 115/56; PULSE 87; RESP 16; TEMP 98.7; O2SAT 99
[2025-03-20 07:20] VITALS: BP 104/59; PULSE 76; RESP 15; TEMP 98.3; O2SAT 95
[2025-03-20] MEDS: diphenhdrAMINE HCL 25 MG CAP PO ONE (09:19)
[2025-03-20 11:15] VITALS: BP 135/73; PULSE 89; RESP 15; TEMP 98.1; O2SAT 98
[2025-03-20 15:20] VITALS: BP 125/75; PULSE 95; RESP 16; TEMP 98.3; O2SAT 98
[2025-03-20 19:00] VITALS: BP 132/64; PULSE 87; RESP 17; TEMP 98.2; O2SAT 97
[2025-03-20 23:00] VITALS: BP 139/74; PULSE 80; RESP 16; TEMP 98.2; O2SAT 97
--- NOTE | 2025-03-20 23:46 | DVHPN2 ---
Progress Note Date Seen: Mar 20, 2025 Subjective S: Lochia minimal. Regular diet well tolerated. Ambulating and voiding well w/o feeling dizzy or lightheaded. Pain relieved with oral analgesics. Passing flatus but no BM yet. Formula feeding. May attempt at home, but feels like it is too uncomfortable most of the time Desires / Requests to be discharged tomorrow vital signs Vital Sign Date Time Temp Pulse Resp B/P (MAP) Pulse Ox O2 Delivery O2 Flow Rate FiO2 03/20/25 19:00 Room Air 03/20/25 19:00 98.2 87 17 132/64 (86) 97 98.2 03/18/25 14:20 2.0 100 Total Intake and Output 03/19/25 03/19/25 03/20/25 15:00 23:00 07:00 Output Total 500 ml 1650 ml 800 ml Balance -500 ml -1650 ml -800 ml medications Current Medications Medications Dose Ordered Sig/Yony Route Start Time Stop Time Status Last Admin Dose Admin Lactated Ringer's 1,000 ml @ 125 mls/hr Q8H IV 03/18/25 00:30 03/18/25 03:05 125 MLS/HR Witch Keren 1 pad PRN PRN TOP 03/18/25 00:30 Cancel Sodium Lauryl Sulfate 240 ml PRN PRN TOP 03/18/25 00:30 Cancel Benzocaine 1 applic PRN PRN TOP 03/18/25 00:30 Cancel Lidocaine HCl 20 ml ONCE PRN IJ 03/18/25 00:30 Diphenoxylate HCl/ Atropine 10 mg Q12HR PRN PO 03/18/25 00:30 Cefazolin Sodium 50 ml @ 100 mls/hr Q8HR IV 03/18/25 14:00 Cancel Ondansetron HCl 4 mg Q4HP PRN IV 03/18/25 13:30 Cancel Ceftriaxone Sodium 50 ml @ 100 mls/hr DAILY@2200 IV 03/18/25 22:00 03/20/25 22:00 100 MLS/HR Docusate Sodium 100 mg Q12HR PO 03/19/25 22:00 03/20/25 19:15 100 MG Dimethicone 80 mg QID PO 03/19/25 18:00 03/20/25 20:11 80 MG Ibuprofen 800 mg Q8HP PRN PO 03/19/25 13:30 03/20/25 20:10 800 MG Acetaminophen/ Hydrocodone Bitart 1 tab Q4HPRN PRN PO 03/19/25 13:30 Acetaminophen/ Hydrocodone Bitart 2 tab Q4HPRN PRN PO 03/19/25 13:30 03/20/25 22:25 2 TAB laboratory and microbiology Laboratory Tests 03/19/25 03:56 03/18/25 18:41 Test 03/18/25 18:41 Range/Units Serum Glucose 77 74-106 mg/dL Objective O: A&O x3 NAD. Afebrile, VSS Chest: heart and lung sounds normal. Breasts: Nipples intact w/o cracks or soreness Abdomen: normal BS, soft, non-tender, no rebound or guarding, fundus firm @ U- 1, Lower abdominal Incision site with Sylke dressing open to fresh air clean, dry and intact. No edema, erythema or induration Extremities: no edema or tenderness Lochia - minimal Problems(with codes): (1) S/P primary low transverse (2) Precipitous drop in hematocrit Assessment/Plan A: 39yo now PPD#2 s/p repeat Anemia Rh+ Formula feeding P: D/C home tomorrow Rx sent to pharmacy precautions and preeclampsia warning signs reviewed F/U with [facility] office in 1 week Plan discussed with: Patient Visit Coding OBGYN Date of Service: Mar 20, 2025 Billing Provider: KIM ESPINO CNM [employer] Common Visit Codes: 61224-NEQ/OBS SAME DATE (HIGH) KIM ESPINO CNM Mar 20, 2025 23:46
[2025-03-21] MEDS: diphenhdrAMINE HCL 25 MG CAP PO ONE (01:11)
[2025-03-21 03:00] VITALS: BP 116/61; PULSE 90; RESP 16; TEMP 98.3; O2SAT 98
[2025-03-21 07:00] VITALS: BP 111/50; PULSE 85; RESP 18; TEMP 98.3; O2SAT 96
[2025-03-21 13:10] VITALS: BP 117/70; PULSE 80; RESP 16; TEMP 98.3; O2SAT 96
== END 2025-03-21 13:10 | disposition home or self-care (01) | DRG 540 ==
LOC: LDRP 03-18 00:10
PROVIDERS: ADMIT Obstetrics & Gynecology; ATTEND Obstetrics & Gynecology
PROC: 10D00Z1 Extraction of Products of Conception, Low, Open Approach (ICD-10-PCS; principal; 2025-03-18 11:54)
DX: O32.2XX0 Maternal care for transverse and oblique lie, not applicable or unspecified (principal); O23.43 Unspecified infection of urinary tract in pregnancy, third trimester; O99.214 Obesity complicating childbirth; E66.01 Morbid (severe) obesity due to excess calories; O99.824 Streptococcus B carrier state complicating childbirth; Z37.0 Single live birth; Z3A.39 39 weeks gestation of pregnancy; O34.211 Maternal care for low transverse scar from previous cesarean delivery; O90.81 Anemia of the puerperium
CPT/HCPCS: 36415; 59025; 76805; 80053; 80307; 81001; 82570; 82962; 83605; 84156; 84443; 84550; 85025; 85610; 85730; 86703; 86780; 86803; 86850; 86900; 86901; 87040; 94760; 94762; 96360; 96361; 96365; 96374; 96375; G0378; J0131; J1885; J2405; J2590; J3490; J7060